=== PATIENT | male | born 1990 ===

== ENCOUNTER 2024-03-04 06:16 | Day surgery (SDC) | payer BC, SELFPAY ==
[2024-03-04 06:29] VITALS: BMI 42.0
[2024-03-04 06:31] VITALS: BP 131/83; PULSE 74; RESP 16; TEMP 36.3; O2SAT 98
[2024-03-04] MEDS: sodium chloride 0.9% 1,000 ML 30 ML IV (06:41)
--- NOTE | 2024-03-04 07:16 | ANES.PREANE2 ---
Pre-Anesthetic Assessment Height/Weight: Height 1.75 m Weight 129.274 kg Temp Pulse Resp BP Pulse Ox O2 Del Method 97.4 F L 74 16 131/83 98 Room Air 03/04/24 06:31 03/04/24 06:31 03/04/24 06:31 03/04/24 06:31 03/04/24 06:31 03/04/24 06:31 Operation Date: 03/04/24 07:30 Proposed Procedures p EGD 10752, 43054, G0105, R19.7, K92.2(Not Applicable) - Jeff Kelly DO s Colonoscopy(Not Applicable) - Jeff Kelly DO Familial anesthetic complications: none Was Beta Haresh taken within 24 hours: N/A Was Clonidine taken within 24 hours: N/A Last intake: Intake Last Liquid Date 03/03/24 Last Liquid Time 23:30 Last Solid Date 03/02/24 Last Solid Time 18:00 Last Intake: 23:30 Social Tobacco (vapes) and No alcohol Exam alert and oriented x 3 Airway Submandibular: within normal limits Cervical ROM: within normal limits Mallampati: Class I Dentition: full Comments: Comments: chipped molar-upper right side History/ROS No significant history except as noted GI Gastroesophageal Reflux Disease Metabolic Morbid Obesity Anesthetic Plan ASA status: 3 Anesthesia: Anesthesia Evaluation, General and MAC Medications/Allergies Home Medications Medication Instructions Recorded Confirmed Last Taken Type pantoprazole 40 mg tablet,delayed 40 mg PO BID 03/02/24 03/04/24 03/03/24 History release (Protonix) Allergies Allergy/AdvReac Type Severity Reaction Status Date / Time No Known Allergies Allergy Unverified 01/20/24 15:35 Current Medications Generic Name Dose Route Start Last Admin Trade Name Krystin PRN Reason Stop Dose Admin Sodium Chloride 1,000 mls @ 30 mls/hr 03/04/24 06:30 03/04/24 06:41 Sodium Chloride 0.9% IV 03/05/24 06:29 30 mls/hr .Q24H DAVID Administration Data Anesthesia Cardiac Studies: No Data to Display
--- NOTE | 2024-03-04 07:35 | PM.HP ---
Providers/Chief Complaint Chief Complaint: R19.7, K92.2 History of Present Illness Harry Oswald is a 33 year old male Review of Systems General: Reports: 10 or more systems reviewed and unremarkable except in HPI and below Medications/Allergies Home Medications Medication Instructions Recorded Confirmed Last Taken Type pantoprazole 40 mg tablet,delayed 40 mg PO BID 03/02/24 03/04/24 03/03/24 History release (Protonix) Allergies Allergy/AdvReac Type Severity Reaction Status Date / Time No Known Allergies Allergy Unverified 01/20/24 15:35 Vitals/I&O/Wt Last Vital Signs Temp 97.4 F L 03/04/24 06:31 Pulse 74 03/04/24 06:31 Resp 16 03/04/24 06:31 BP 131/83 03/04/24 06:31 Pulse Ox 98 03/04/24 06:31 O2 Del Method Room Air 03/04/24 06:31 Weight last 48 hrs Weight 285 lb A&P Assessment and plan (1) Chronic diarrhea: (2) GERD (gastroesophageal reflux disease): Plan EGD and colonoscopy Attestations Medical Necessity Statement*: Home Coding Level of Care Code Acute Code for Chg Fwd Diagnoses Chronic diarrhea K52.9 GERD (gastroesophageal reflux disease) K21.9
[2024-03-04 07:57] VITALS: BP 114/75; PULSE 85; RESP 18; TEMP 36.2; O2SAT 95
[2024-03-04 08:02] VITALS: BP 118/64; PULSE 70; RESP 18; O2SAT 96
[2024-03-04 08:12] VITALS: BP 132/81; PULSE 65; RESP 18; O2SAT 97
--- NOTE | 2024-03-04 08:13 | ANE.PACU2 ---
Inpatient post-anesthesia follow up: Airway intact: Yes Vital signs: Temperature 97.1 F Pulse Rate 70 Respiratory Rate 18 Blood Pressure 118/64 Pulse Oximetry 96 Oxygen Delivery Me thod Room Air Oxygen Flow Rate Fraction of Inspir ed Oxygen Hydration adequate: Yes Nausea and vomiting: No Pain level: 1 Mental status: Baseline
[2024-03-04 09:12] LABS: C.Diff PCR (Lab) NEGATIVE (Negative)
== END 2024-03-04 08:27 | disposition home or self-care (01) ==
PROVIDERS: Visit Provider Surgery
PROC: 0DJ08ZZ Inspection of Upper Intestinal Tract, Via Natural or Artificial Opening Endoscopic (ICD-10-PCS; CPT 43235; principal; 2024-03-04 07:30)
PROC: 0DJD8ZZ Inspection of Lower Intestinal Tract, Via Natural or Artificial Opening Endoscopic (ICD-10-PCS; CPT 45378; 2024-03-04 07:30)
DX: K52.9 Noninfective gastroenteritis and colitis, unspecified (principal); K21.9 Gastro-esophageal reflux disease without esophagitis; F17.290 Nicotine dependence, other tobacco product, uncomplicated; E66.01 Morbid (severe) obesity due to excess calories; Z68.41 Body mass index [BMI] 40.0-44.9, adult
CPT/HCPCS: 43239; 45380; 82274; 83630; 87045; 87177; 87209; 87427; 87449; 87493; 88305; 88342; J2704; J3010; J7030